=== PATIENT | male | born 1990 ===

== ENCOUNTER 2018-11-30 20:11 | Emergency (ER) | payer SELFPAY ==
--- NOTE | 2018-11-30 21:32 | C.PDOC ---
History Of Present Illness Patient is a 28 year old male who presents to the ED c/o sore throat for the past week. Patient states that he initially had associated fever which has since resolved, but now has associated body aches and chills. He denies dysphasia, CP, SOB, rash, or recent travel. Time Seen by Provider: 11/30/18 20:36 Chief Complaint (Nursing): ENT Problem History Per: Patient History/Exam Limitations: None Onset/Duration Of Symptoms: Days (one week ) Current Symptoms Are (Timing): Still Present Past Medical History Reviewed: Historical Data, Nursing Documentation, Vital Signs Vital Signs: Last Vital Signs Temp 99.3 F 11/30/18 20:29 Pulse 90 11/30/18 20:29 Resp 20 11/30/18 20:29 BP 155/96 H 11/30/18 20:29 Pulse Ox 97 11/30/18 20:29 - Medical History PMH: Asthma Surgical History: No Surg Hx Family History: States: No Known Family Hx - Social History Hx Alcohol Use: Yes Hx Substance Use: No Review Of Systems Except As Marked, All Systems Reviewed And Found Negative. Constitutional: Positive for: Chills, Other (body aches ) ENT: Positive for: Throat Pain Cardiovascular: Negative for: Chest Pain Respiratory: Negative for: Shortness of Breath Skin: Negative for: Rash Neurological: Negative for: Other (dysphasia ) Physical Exam - Physical Exam Appears: Non-toxic, No Acute Distress Skin: Normal Color, Warm, Dry, No Rash Head: Atraumatic, Normacephalic Eye(s): bilateral: Normal Inspection, PERRL, EOMI Ear(s): Bilateral: Normal Oral Mucosa: Moist Throat: Erythema (bilateral tonsillar erythema and swelling ), Exudate (+) Neck: Normal ROM, Other (anterior cervical lymphadenopthy ) Chest: Symmetrical, No Deformity Cardiovascular: Rhythm Regular, No Friction Rub, No Murmur Respiratory: Normal Breath Sounds, No Rales, No Rhonchi, No Wheezing Gastrointestinal/Abdominal: Soft, No Tenderness Back: Normal Inspection, No CVA Tenderness Extremity: Normal ROM, No Swelling Neurological/Psych: Oriented x3, Normal Speech, Normal Motor Gait: Steady ED Course And Treatment O2 Sat by Pulse Oximetry: 97 (on RA) Pulse Ox Interpretation: Normal Medical Decision Making Medical Decision Making: Plan: Amoxicillin 500mg PO Motrin 600mg PO Disposition - Disposition Referrals: Freedom Zimmerman MD [Staff Provider] - [facility] [Outside] Disposition: HOME/ ROUTINE Disposition Time: 21:45 Condition: GOOD Additional Instructions: Follow up with the medical doctor within 1-2 days. Return if worsened. Prescriptions: Amoxicillin [Amoxil 500 mg Cap] 500 mg PO TID #29 cap Ibuprofen [Motrin] 600 mg PO TID #21 tab Instructions: Sore Throat in Adults Forms: [facility] (Czech) - Clinical Impression Clinical Impression: Pharyngitis - PA / MANAGER HEART FAILURE / Resident Statement MD/DO has examined the patient and agrees with the treatment plan. - Scribe Statement The provider has reviewed the documentation as recorded by the Lesly Miles All medical record entries made by the Scribe were at my direction and personally dictated by me. I have reviewed the chart and agree that the record accurately reflects my personal performance of the history, physical exam, medical decision making, and the department course for this patient. I have also personally directed, reviewed, and agree with the discharge instructions and disposition.
[2018-11-30 22:04] VITALS: BP 132/86; PULSE 82; RESP 16; TEMP 98.5
[2018-11-30 23:13] VITALS: O2SAT 97
== END 2018-11-30 22:04 | disposition home or self-care (01) ==
LOC: C.ER 20:11
DX: J02.9 Acute pharyngitis, unspecified (principal)